=== PATIENT | female | born 1995 | race Two or more races ===

== ENCOUNTER 2021-05-22 18:45 | Inpatient (IN) | payer OTHER ==
[~2021-05-22] VITALS: Ht 157.5 cm; Wt 71.7 kg
[2021-05-22 20:51] LABS: HEMOGLOBIN 14.4 gm/dl (12.3-15.3); RED BLOOD COUNT 4.66 M/UL (4.00-5.10)
[2021-05-22 20:58] LABS: BUN/CREATININE RATIO 11 (0-10)
[2021-05-24 09:04] LABS: HEMOGLOBIN 12.8 gm/dl (12.3-15.3); RED BLOOD COUNT 4.24 M/UL (4.00-5.10)
[2021-05-24 09:05] LABS: WHITE BLOOD COUNT 6.7 K/UL (4.5-11.0)
[2021-05-24 09:14] LABS: HBSAG SCREEN Negative (Negative); HEP A AB, IGM Negative (Negative); HEP B CORE AB, IGM Negative (Negative); HEP C VIRUS AB <0.1 (0.0-0.9)
[2021-05-24 09:45] LABS: BUN/CREATININE RATIO 17 (0-10)
[2021-05-25 03:54] LABS: HEMOGLOBIN 13.1 gm/dl (12.3-15.3); RED BLOOD COUNT 4.31 M/UL (4.00-5.10)
[2021-05-25 03:55] LABS: WHITE BLOOD COUNT 8.9 K/UL (4.5-11.0)
[2021-05-25 04:09] LABS: BUN/CREATININE RATIO 15 (0-10)
[2021-05-26 03:42] LABS: HEMOGLOBIN 13.2 gm/dl (12.3-15.3); RED BLOOD COUNT 4.33 M/UL (4.00-5.10); WHITE BLOOD COUNT 10.7 K/UL (4.5-11.0)
[2021-05-26 04:04] LABS: BUN/CREATININE RATIO 17 (0-10)
[2021-05-27 03:43] LABS: HEMOGLOBIN 13.9 gm/dl (12.3-15.3); RED BLOOD COUNT 4.54 M/UL (4.00-5.10); WHITE BLOOD COUNT 8.5 K/UL (4.5-11.0)
[2021-05-27 04:04] LABS: BUN/CREATININE RATIO 15 (0-10)
[2021-05-27] MEDS ORDERED: DECADRON6 MG PO (08:39)
== END 2021-05-27 13:05 | disposition home or self-care (01) | DRG 177 ==
LOC: ER1 18:45 → CDU 05-23 00:36 → PROG CARE 05-23 00:36 → CDU 05-23 00:41 → PROG CARE 05-23 05:47
PROVIDERS: Internal Medicine; Physician Assistant; ADMIT Internal Medicine
PROC: 3E0333Z Introduction of Anti-inflammatory into Peripheral Vein, Percutaneous Approach (ICD-10-PCS; principal; 2021-05-22)
PROC: XW033E5 Introduction of Remdesivir Anti-infective into Peripheral Vein, Percutaneous Approach, New Technology Group 5 (ICD-10-PCS; 2021-05-23)
PROC: 8E0ZXY6 Isolation (ICD-10-PCS; 2021-05-23)
DX: U07.1 COVID-19 (principal); J12.82 Pneumonia due to coronavirus disease 2019; J96.01 Acute respiratory failure with hypoxia; N39.0 Urinary tract infection, site not specified; R00.1 Bradycardia, unspecified; E88.09 Other disorders of plasma-protein metabolism, not elsewhere classified; F41.9 Anxiety disorder, unspecified; E87.6 Hypokalemia; E83.39 Other disorders of phosphorus metabolism; E83.42 Hypomagnesemia; Z99.81 Dependence on supplemental oxygen; Z82.49 Family history of ischemic heart disease and other diseases of the circulatory system
CPT/HCPCS: 36415; 36600; 71045; 71275; 80048; 80053; 80074; 81001; 82550; 82553; 82728; 82803; 83605; 83735; 83880; 84100; 84132; 84439; 84443; 84484; 85025; 85027; 85379; 85610; 85652; 85730; 86140; 87040; 87086; 93005; 94640; 94664; 94760; 96374; 96375; 99285; J0456; J0696; J1100; J1650; J2185; J2405; J3480; J7030; Q0177; Q9967